=== PATIENT | female | born 1950 | race Caucasian/White ===

== ENCOUNTER → 2016-12-09 | Outpatient (CLI) | payer MEDICARE, OTHER | LOC: OD 09:39 | PROVIDERS: ATTEND Internal Medicine Endocrinology, Diabetes & Metabolism | DX: E11.9 Type 2 diabetes mellitus without complications (principal) | CPT/HCPCS: 36415; 82533 ==

== ENCOUNTER 2017-03-18 19:09 | Observation (INO) | payer MEDICARE, OTHER ==
--- NOTE | 2017-03-18 19:42 | ER Document Report ---
ED Cardiac - General Stated Complaint: CHEST PAIN Time seen by provider: 19:35 Notes: Patient is a 66-year-old female that comes emergency department for chief complaint of chest pain that started around 1830, she states that symptoms started prior to arrival, she states she had a shooting sharp pain that went from the left side of her chest in the front to her back and also down her left arm. EMS reports she was diaphoretic when they arrived. Patient took 325 mg of aspirin, comes by EMS, was given 1 sublingual nitroglycerin and 100 g of fentanyl, patient states she feels much improved now and only barely intermittently feels mild discomfort. She denies feeling palpitations. Patient is on chronic opioid pain management for her lower back. Patient denies shortness breath, nausea vomiting, fever, cough. Patient denies history of [place], states she had a negative stress test 3 years ago and a negative cardiac catheterization in the past. Past medical history of lymphoma, thyroid cancer, previous chemotherapy and radiation, COPD (former smoker), hypertension, hyperlipidemia, paroxysmal atrial fibrillation. Patient takes aspirin daily. Patient's machine puller is Dr. Cruz ([place]). TRAVEL OUTSIDE OF THE [place] IN LAST 30 DAYS: No - Related Data Allergies/Adverse Reactions: butorphanol tartrate [From Stadol] Adverse Reaction (Severe, Verified 09/30/13 18:53) n and v adhesives Allergy (Severe, Uncoded 09/30/13 18:53) Blisters seasonal Allergy (Severe, Uncoded 09/30/13 18:53) itching Home Medications: Current Home Medications Albuterol Sulfate [Proair HFA] 2 puff IH QIDP PRN 03/18/17 [History] Gabapentin Enacarbil [Horizant] 600 g PO DAILY 03/18/17 [History] Linaclotide [Linzess] 290 mcg PO DAILY 03/18/17 [History] Primidone [Mysoline] 100 mg PO QHS 03/18/17 [History] Primidone [Mysoline] 100 mg PO QPM 03/18/17 [History] Rizatriptan Benzoate [Rizatriptan] 10 mg PO DAILY 03/18/17 [History] Sitagliptin Phosphate [Januvia 50 mg Tablet] 50 mg PO DAILY 03/18/17 [History] Etanercept [Enbrel] 50 mg SQ ASDIR PRN 03/19/17 [History] Oxycodone HCl/Acetaminophen [Percocet 5-325 mg Tablet] 1 tab PO Q6HP PRN [History] Past Medical History - General Information source: Patient - Social History Smoking Status: Former Smoker Frequency of alcohol use: None Drug Abuse: None Lives with: Family Family History: Reviewed & Not Pertinent - Past Medical History Cardiac Medical History: Reports: Hx Atrial Fibrillation - paroxysmal, Hx Heart Attack - ?, Hx Hypertension Denies: Hx Coronary Artery Disease Pulmonary Medical History: Reports: Hx Asthma, Hx Bronchitis - hx of, Hx COPD - uses inhalers, Hx Pneumonia - hx of Neurological Medical History: Denies: Hx Cerebrovascular Accident, Hx Seizures Musculoskeltal Medical History: Reports Hx Arthritis Skin Medical History: Reports Hx Psoriasis Past Surgical History: Reports: Hx Genitourinary Surgery - Bladder sling, Hx Gynecologic Surgery - cystoseal, Hx Hysterectomy, Hx Thyroid Surgery - rectoseal. Denies: Hx Pacemaker - Immunizations Hx Diphtheria, Pertussis, Tetanus Vaccination: Yes Review of Systems - Review of Systems Constitutional: No symptoms reported EENT: No symptoms reported Cardiovascular: See HPI Respiratory: No symptoms reported Gastrointestinal: No symptoms reported Genitourinary: No symptoms reported Female Genitourinary: No symptoms reported Musculoskeletal: No symptoms reported Skin: No symptoms reported Hematologic/Lymphatic: No symptoms reported Neurological/Psychological: No symptoms reported Physical Exam - Vital signs Interpretation: Normal - General General appearance: Appears well In distress: None - Patient smiling, talkative, relaxed appearing - HEENT Head: Normocephalic, Atraumatic Eyes: Normal Conjunctiva: Normal Extraocular movements intact: Yes Eyelashes: Normal Pupils: PERRL Mouth/Lips: Normal Mucous membranes: Normal Pharynx: Normal Neck: Normal - Respiratory Respiratory status: No respiratory distress Chest status: Nontender Breath sounds: Normal. No: Decreased air movement, Wheezing Chest palpation: Normal - Cardiovascular Rhythm: Regular. No: Tachycardia Heart sounds: Normal auscultation, S1 appreciated, S2 appreciated Murmur: No - Abdominal Inspection: Normal Distension: No distension Bowel sounds: Normal Tenderness: Nontender Organomegaly: No organomegaly - Back Back: Normal, Nontender. 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 03/18/17 On reexamination patient is pain-free unless she actively moves her left shoulder, there is pain with palpation of the left upper anterior chest wall near the clavicle and also the back near the midline of the scapula, patient with no other complaints. Patient states her other symptoms have resolved ( shooting pain which made her diaphoretic). CBC unremarkable, potassium is very slightly elevated at 5.2, chronic kidney disease comparable to prior, initial cardiac enzymes negative. Old CT in 2015 showing thoracic aortic aneurysm. Patient current symptoms not indicating worsening aneurysm/dissection/rupture, patient has normal bilateral pulses, unremarkable vital signs, is comfortable appearing. Discussed with Dr. Ellis, does not recommend CT chest at this time, does recommend telemetry observation. Discussed with patient, she is very agreeable with this. 03/19/17 Second set of cardiac enzymes is negative. Patient unchanged with no current complaints. Spoke with Dr. Gonzales, patient will be admitted to telemetry observation. - Laboratory Result Diagrams: 03/18/17 20:02 03/18/17 20:02 Laboratory results interpreted by me: 03/18/17 20:02 Potassium 5.2 H BUN 26 H Creatinine 1.30 H Est GFR ( Amer) 50 L Est GFR (Non-Af Amer) 41 L Discharge - Discharge Clinical Impression: Chest pain Qualifiers: Chest pain type: unspecified Qualified Code(s): R07.9 - Chest pain, unspecified Admitting Provider: Hospitalist Unit Admitted: Telemetry
[2017-03-18 20:15] LABS: ABSOLUTE BASOPHILS # (AUTO) 0.1 10^3/uL (0.0-0.2); ABSOLUTE EOSINOPHILS # (AUTO) 0.5 10^3/uL (0.0-0.6); ABSOLUTE LYMPHOCYTES (AUTO) 3.1 10^3/uL (0.5-4.7); ABSOLUTE MONOCYTES (AUTO) 0.7 10^3/uL (0.1-1.4); ABSOLUTE NEUT (AUTO) 4.9 10^3/uL (1.7-8.2); BASOPHILS % (AUTO) 0.7 % (0-2); EOSINOPHILS % (AUTO) 5.5 % (0-6); HEMATOCRIT 39.4 % (36.0-47.0); HEMOGLOBIN 13.2 g/dL (12.0-15.5); HGB HCT DIFFERENCE 0.2; LYMPHOCYTES % (AUTO) 33.4 % (13-45); MEAN CORPUSCULAR HEMOGLOBIN 29.3 pg (27.0-33.4); MEAN CORPUSCULAR HGB CONC 33.6 g/dL (32.0-36.0); MEAN CORPUSCULAR VOLUME 87 fl (80-97); MONOCYTES % (AUTO) 7.4 % (3-13); RED BLOOD COUNT 4.51 10^6/uL (3.72-5.28); RED CELL DISTRIBUTION WIDTH 12.4 % (11.5-14.0); WHITE BLOOD COUNT 9.2 10^3/uL (4.0-10.5)
[2017-03-18 20:31] LABS: ALANINE AMINOTRANSFERASE 34 U/L (9-52); ALBUMIN 4.3 g/dL (3.5-5.0); ALKALINE PHOSPHATASE 97 U/L (38-126); ANION GAP 14 (5-19); ASPARTATE AMINO TRANSFERASE 28 U/L (14-36); BILIRUBIN,DIRECT 0.3 mg/dL (0.0-0.4); BILIRUBIN,TOTAL 0.5 mg/dL (0.2-1.3); BLOOD UREA NITROGEN 26 mg/dL (7-20); CALCIUM 9.1 mg/dL (8.4-10.2); CARBON DIOXIDE 26 mmol/L (22-30); CHLORIDE 100 mmol/L (98-107); CREATINE KINASE 74 U/L (30-135); GLUCOSE 94 mg/dL (75-110); POTASSIUM 5.2 mmol/L (3.6-5.0); SODIUM 139.9 mmol/L (137-145); TOTAL PROTEIN 7.8 g/dL (6.3-8.2)
[2017-03-18 20:43] LABS: CREATINE KINASE MB 0.46 ng/mL (<4.55)
[2017-03-18 20:44] LABS: TROPONIN I < 0.012 ng/mL
[2017-03-19 01:28] LABS: ADD ON TESTING BLD IN LAB ACKNOWLEDGE
[2017-03-19] MEDS ORDERED: GLUCAGON,HUMAN RECOMB 1 MG INJ IM PRN (01:34)
[2017-03-19] MEDS ORDERED: ACETAMINOPHEN 325 MG TABLET PO PRN (01:34)
[2017-03-19] MEDS ORDERED: INSULIN LISPRO 100 UNIT/ML 3 ML VIAL SUBCUT PRN (01:34)
[2017-03-19] MEDS ORDERED: DEXTROSE 40% GEL 15 GM TUBE PO PRN ×2 (01:34)
[2017-03-19] MEDS ORDERED: DEXTROSE 50%-WATER 25 GM/50 ML DISP.SYRIN IV PRN ×2 (01:34)
[2017-03-19 01:38] LABS: POTASSIUM 5.2 mmol/L (3.6-5.0)
[2017-03-19] MEDS ORDERED: OXYCODONE HCL IR 5 MG TABLET PO PRN (01:42)
--- NOTE | 2017-03-19 02:12 | PDOC H&P ---
History of Present Illness Admission Date/PCP: 03/19/17 00:08 MD Marivel HERNÁNDEZ MD [facility] Patient complains of: chest pain History of Present Illness: MAREK GILES is a 66 year old Caucasion female with a somewhat complicated past medical history, including known coronary artery disease, who presents to the emergency room for evaluation of above complaint. Patient has been discussed with emergency room nurse practitioner who evaluated the patient. She noted the onset approximately 6:30 PM on the of sharp shooting left anterior chest pain that radiated to her back and also down her left arm. Associated diaphoresis. No other associated symptoms. No prior such episodes. Lasted approximately 2 hours. Resolved eventually after a full strength aspirin, one sublingual nitroglycerin, and 100 g of IV fentanyl. 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 Was noted by the emergency room nurse practitioner to have mild palpable pain around her left shoulder, but Currently resting quietly, completely pain-free. Suffered a myocardial infarction greater than 25 years ago. Catheterization performed at that time, with no intervention, including stent or angioplasty. Negative nuclear stress study 3 years ago. Hypertension. History of paroxysmal atrial fibrillation. No history of pulmonary embolus or DVT. No recent long trip with prolonged inactivity, or unusual lower extremity swelling or tenderness. Has a known thoracic descending aortic aneurysm, first documented on CT angiogram of chest in 2014, with stable dimensions by noncontrast chest CT approximately a year ago. Patient states she first found out about the aneurysm this evening. Has a history of gastric lymphoma, status post treatment of same, diagnosed in 2009. She is status post wedge resection of her right lung which did not reveal any evidence of pulmonary involvement with lymphoma, according to patient. She is also status post total thyroidectomy for carcinoma. Laboratory results are listed in [facility] [employer] and are reviewed. X-ray summary results are listed below, with full report(s) reviewed. . EKG's reviewed. And compared to a tracing from September 152014. Social history/personal habits: . Has children. 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 Former smoker. Rare alcohol use. No illicit drug use. Allergies/adverse reactions are listed in [employer] and are reviewed. Home medications Home medications initially autopopulated into [employer] may not accurately reflect patient's true medications, dosages, and/or frequencies. 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 REVIEW OF SYSTEMS: Constitutional: No fever or chills. Eyes: No current vision complaints. ENT: No swallowing problems or complaints. No hearing problems or complaints. Pulmonary: No current complaints. Cardiovascular: See history and present illness. Gastrointestinal: No current complaints, including nausea or vomiting. Skin: Psoriasis Hematologic: Easy bruising. Neurologic: Chronic numbness and tingling of her feet from her diabetes mellitus. Musculoskeletal: Joint pain from arthritis. Psychiatric: No current complaints, including anxiety or depression. Endocrine: No current complaints, including polyuria. Genitourinary: No current complaints, including dysuria. PHYSICAL EXAMINATION: Emergency room nurse Davis is present. 5 feet 10 inches tall. 99.8 kg. BMI 31.6 kg/m. Blood pressure 110/69. Pulse 85 and regular. 93% saturation on room air. Respirations are 20 and unlabored. Temperature not recorded on chart; skin feels normothermic. Somewhat obese otherwise well-developed female who appears a bit younger than her stated age. Pleasant awake alert and cooperative. No obvious distress other than somewhat anxious. No agitation. Skin is warm and dry. No grossly obvious evidence of rash in areas of skin examined. No subcutaneous nodules palpated. ENT: Hearing grossly normal to normal conversation. Tongue midline on protrusion pink and slightly moist. Eyes: No scleral icterus. Pupils equal and reactive to light at 4 mm. [place] conjunctivae. Neck is supple and nontender to gentle active range of motion and palpation. Midline trachea. No palpable thyroid nodule mass enlargement or tenderness. Lymphatic: No palpable cervical or clavicular nodes. Neck and lymphatic exams limited by patient body habitus. Psychiatric: Reasonable insight into acute and chronic medical issues. Oriented to time location and why here. Lungs: Auscultation reveals clear and equal breath sounds bilaterally. No use of accessory respiratory muscles. Cardiovascular: Heart regular rate and rhythm, without gallop murmur or rub. No carotid or abdominal aortic bruits. No ankle or pedal edema. Faintly palpable dorsalis pedis pulses. Abdomen: soft, somewhat obese, nontender with positive bowel sounds. Unable to adequately evaluate abdomen for masses or organomegaly due to body habitus. Compression of neither her upper abdomen nor sternum nor upper left anterior chest wall reproduces her previously noted chest discomfort. Compression of the upper left anterior chest wall does produce mild sharp discomfort, but again , different than the discomfort that brought her to the emergency room. Extremities: Feet are warm and dry. No calf tenderness to compression. No grossly obvious visual evidence of calf swelling. Gentle manipulation of lower extremities fails to reveal any obvious evidence of injury or instability to knees hips or ankles. Neurologic: Moves upper extremities grossly normally. Patellar reflexes absent. Absent Babinski. Light touch decreased at her feet, a chronic finding according to patient. Dorsiflexion and plantarflexion of feet 5 / 5 and symmetric. Past Medical History Cardiac Medical History: Reports: Atrial Fibrillation - paroxysmal, Coronary Artery Disease, Myocardial Infarction - Greater than 25 years ago., Hyperlipidema - Diagnosis 2 weeks ago; to discuss medical treatment with PCP., Hypertension Denies: DVT, Pulmonary Embolism Pulmonary Medical History: Reports: Asthma, Bronchitis - hx of, Pneumonia - hx of Denies: Chronic Obstructive Pulmonary Disease (COPD) Neurological Medical History: Denies: Hemorrhagic CVA, Ischemic CVA, Seizures Endocrine Medical History: Reports: Diabetes Mellitus Type 2, Hypothyroidism - Postsurgical for carcinoma Denies: Diabetes Mellitus Type 1, Hyperthyroidism Renal/ Medical History: Reports: None Malignancy Medical History: Reports: Lymphoma - Gastric, Skin Cancer - Squamous and basal cell carcinomas., Other - Thyroid, status post total thyroidectomy. GI Medical History: Reports: Other - Fatty liver, but with recent intentional 40 pound weight loss. Denies: Cirrhosis, Gastroesophageal Reflux Disease, Hepatitis Musculoskeltal Medical History: Reports: Arthritis - Psoriatic and degenerative Skin Medical History: Reports: Psoriasis Psychiatric Medical History: Denies: Alcohol Dependency, Depression, General Anxiety Disorder, Substance Abuse, Tobacco Dependency Hematology: Reports: Other - Easy bruising Denies: Anemia Infectious Medical History: Denies: Hepatitis B, Hepatitis C Past Surgical History Past Surgical History: Reports: Hysterectomy, Thyroidectomy - Total for carcinoma, Other - Bladder sling; wedge resection, right lung, with no evidence of lymphoma Denies: Pacemaker Social History Information Source: Patient, Emergency Med Personnel, [facility] Records Lives with: Spouse/Significant other Smoking Status: Former Smoker Frequency of Alcohol Use: Rare Drugs: None - Advance Directive Resuscitation Status: Full Code Surrogate healthcare decision maker:: Family History Family History: Reviewed & Not Pertinent, Malignancy, Other - Mother of ruptured abdominal aortic aneurysm; also had leukemia Parental Family History Reviewed: Yes Children Family History Reviewed: Yes Sibling(s) Family History Reviewed.: Yes Medication/Allergy Home Medications: Amlodipine Bes/Olmesartan Med [Ade 5-20 Mg Tablet] 1 each PO Q48HS 09/16/12 Calcitriol [Rocaltrol 0.25 mcg Capsule] 0.5 mcg PO DAILY 09/16/12 Fluticasone/Salmeterol [Advair 500-50 Diskus 14 Dose (Hosp Use)] 1 inh IH BID Levothyroxine Sodium [Synthroid] 150 mcg PO DAILY 09/16/12 Morphine Sulfate [Avinza] 60 mg PO DAILY 09/16/12 Celecoxib [Celebrex 200 Mg Capsule] 200 mg PO BIDP PRN 09/19/12 Duloxetine HCl [Cymbalta] 90 mg PO DAILY 09/19/12 Oxycodone HCl/Acetaminophen [Percocet 10-325 Mg Tablet] 1 each PO Q6HP PRN 09/19 Primidone [Mysoline 50 Mg Tablet] 50 mg PO QAM 09/30/13 Albuterol Sulfate [Proair HFA] 2 puff IH QIDP PRN 03/18/17 Gabapentin Enacarbil [Horizant] 600 g PO DAILY 03/18/17 Linaclotide [Linzess] 290 mcg PO DAILY 03/18/17 Primidone [Mysoline] 100 mg PO QHS 03/18/17 Primidone [Mysoline] 100 mg PO QPM 03/18/17 Rizatriptan Benzoate [Rizatriptan] 10 mg PO DAILY 03/18/17 Sitagliptin Phosphate [Januvia 50 mg Tablet] 50 mg PO DAILY 03/18/17 Etanercept [Enbrel] 50 mg SQ ASDIR PRN 03/19/17 Oxycodone HCl/Acetaminophen [Percocet 5-325 mg Tablet] 1 tab PO Q6HP PRN Allergies/Adverse Reactions: butorphanol tartrate [From Stadol] Adverse Reaction (Severe, Verified 03/19/17 01:42) n and v adhesives Allergy (Severe, Uncoded 09/30/13 18:53) Blisters seasonal Allergy (Severe, Uncoded 09/30/13 18:53) itching Physical Exam Vital Signs: Temp Pulse Resp BP Pulse Ox 13 110/69 93 03/19/17 00:31 03/19/17 00:31 03/19/17 00:31 Results Impressions: Chest X-Ray 03/18/17 19:21 IMPRESSION: NO ACUTE RADIOGRAPHIC FINDING IN THE CHEST. Assessment & Plan - Diagnosis (1) Chest pain Qualifiers: Chest pain type: unspecified Qualified Code(s): R07.9 - Chest pain, unspecified Is this a current diagnosis for this admission?: YesPlan: Patient will be placed in observation bed under chest pain protocol. Patient understands to notify staff should chest pain recur. Serial troponin's . Repeat EKG. with hyperlipidemia noted on primary care provider's lipid panel 2 weeks ago, will forego repeat panel during this hospital admission; will request lab results from PCP. I have strongly encouraged patient not to get out of bed without notifying staff , to avoid a fall with injury. Knee high SCDs for DVT prophylaxis. Along with subcutaneous heparin. Impression and plans were discussed with patient, who concurs. Time spent in evaluation and management of patient: 68 minutes. (2) Hyperkalemia Is this a current diagnosis for this admission?: YesPlan: Follow-up chemistry. (3) Hyperlipidemia Qualifiers: Hyperlipidemia type: unspecified Qualified Code(s): E78.5 - Hyperlipidemia, unspecified Is this a current diagnosis for this admission?: Yes (4) CAD (coronary artery disease) Qualifiers: Coronary Disease-Associated Artery/Lesion type: [place] artery [place] vs. transplanted heart: [place] heart Associated angina: angina presence unspecified Qualified Code(s): I25.10 - Atherosclerotic heart disease of [place] coronary artery without angina pectoris Is this a current diagnosis for this admission?: YesPlan: Resume home medications as appropriate once these have been determined and reviewed. (5) CKD (chronic kidney disease), stage III Is this a current diagnosis for this admission?: Yes (6) Diabetes mellitus type 2 in obese Is this a current diagnosis for this admission?: YesPlan: Diabetic cardiac prerenal diet.Resume home medications as appropriate once these have been determined and reviewed. (7) Post-surgical hypothyroidism Is this a current diagnosis for this admission?: YesPlan: TSH level pending. Resume home medications as appropriate once these have been determined and reviewed. (8) Thoracic ascending aortic aneurysm Is this a current diagnosis for this admission?: Yes
[2017-03-19] MEDS ORDERED: LANSOPRAZOLE 30 MG TAB.RAP.DR PO SCH (06:00)
[2017-03-19 06:47] LABS: ANION GAP 10 (5-19); BLOOD UREA NITROGEN 24 mg/dL (7-20); CALCIUM 8.7 mg/dL (8.4-10.2); CARBON DIOXIDE 31 mmol/L (22-30); CHLORIDE 101 mmol/L (98-107); CREATININE RESULT 1.32 mg/dL (0.52-1.25); GLUCOSE 97 mg/dL (75-110); SODIUM 141.8 mmol/L (137-145)
[2017-03-19 06:49] LABS: POTASSIUM 4.9 mmol/L (3.6-5.0)
--- NOTE | 2017-03-19 08:31 | EKG REPORT ---
SEVERITY:- BORDERLINE ECG - SINUS RHYTHM BORDERLINE LEFT AXIS DEVIATION BORDERLINE R WAVE PROGRESSION, ANTERIOR LEADS : Confirmed by: Roxy Maya MD 19-Mar-2017 08:31:18
--- NOTE | 2017-03-19 08:33 | EKG REPORT ---
SEVERITY:- BORDERLINE ECG - SINUS RHYTHM BORDERLINE LEFT AXIS DEVIATION BORDERLINE R WAVE PROGRESSION, ANTERIOR LEADS : Confirmed by: Roxy Maya MD 19-Mar-2017 08:31:24
[2017-03-19] MEDS ORDERED: ASPIRIN 81 MG TABLET, ENT COATED PO SCH (10:00)
[2017-03-19] MEDS ORDERED: HEPARIN SOD (PORCINE) 5,000 UNIT/ML 1 ML SYRINGE SUBCUT SCH (10:00)
[2017-03-19] MEDS ORDERED: ENOXAPARIN SODIUM INJ 40 MG/0.4 ML DISP.SYRIN SUBCUT SCH (10:00)
--- NOTE | 2017-03-19 11:04 | PDOC DISCHARGE SUMMARY ---
General - Admit/Disc Date/PCP Admission Date/Primary Care Provider: 03/19/17 01:37 XIMENA ROBERTS MD Discharge Date: 03/19/17 - Discharge Diagnosis (1) Chest pain Is this a current diagnosis for this admission?: Yes (2) Hyperkalemia Is this a current diagnosis for this admission?: Yes (3) Hyperlipidemia Is this a current diagnosis for this admission?: Yes (4) CAD (coronary artery disease) Is this a current diagnosis for this admission?: Yes (5) CKD (chronic kidney disease), stage III Is this a current diagnosis for this admission?: Yes (6) Diabetes mellitus type 2 in obese Is this a current diagnosis for this admission?: Yes (7) Post-surgical hypothyroidism Is this a current diagnosis for this admission?: Yes (8) Thoracic ascending aortic aneurysm Is this a current diagnosis for this admission?: Yes - Additional Information Resuscitation Status: Full Code Discharge Diet: Cardiac - low fat, low salt, Diabetic - no concentrated sweets Discharge Activity: Activity As Tolerated, Balance Activity w/Rest Home Medications: Albuterol Sulfate [Proair HFA] 2 puff IH QIDP PRN 03/19/17 Amlodipine Besylate [Norvasc 5 mg Tablet] 5 mg PO DAILY #30 tablet 03/19/17 Aspirin [Ecotrin 81 mg EC Tablet] 81 mg PO DAILY tabec 03/19/17 Calcitriol [Rocaltrol 0.5 mcg Capsule] 1 cap PO DAILY 03/19/17 Celecoxib [Celebrex 200 mg Capsule] 200 mg PO BIDP PRN 03/19/17 Duloxetine HCl 30 mg PO DAILY 03/19/17 Duloxetine HCl [Cymbalta] 60 mg PO DAILY 03/19/17 Fluticasone/Salmeterol [Advair 500-50 Diskus 28 Dose] 1 inh IH Q12 03/19/17 Gabapentin Enacarbil [Horizant] 600 mg PO WSUPPER 03/19/17 L.acidoph & Paracasei,B.lactis [Probiotic] 1 each PO DAILY 03/19/17 L.acidoph & Paracasei,B.lactis [Probiotic] 1 each PO DAILY 03/19/17 Levothyroxine Sodium [Synthroid 0.15 mg Tablet] 0.15 mg PO DAILY 03/19/17 Linaclotide [Linzess] 290 mcg PO DAILY 03/19/17 Melatonin 1.5 mg PO DAILY 03/19/17 Morphine Sulfate [Morphine Sulfate ER] 60 mg PO DAILY 03/19/17 Multivitamin Gummies 1 ea PO DAILY 03/19/17 Oxycodone HCl/Acetaminophen [Percocet 5-325 mg Tablet] 1 tab PO Q6HP PRN Primidone [Mysoline 50 mg Tablet] 50 mg PO DAILY 03/19/17 Primidone [Mysoline 50 mg Tablet] 100 mg PO BID@1800,2200 03/19/17 Rizatriptan Benzoate [Rizatriptan] 10 mg PO DAILYP PRN 03/19/17 Sitagliptin Phosphate [Januvia 50 mg Tablet] 50 mg PO DAILY 03/19/17 Additional Information: Stress test w/ Care Tech in [place] in 1 to 2 weeks. History of Present Illness Patient complains of: Chest Pain History of Present Illness: MAREK GILES is a 66 year old female, with diabetes, coronary artery disease, hypertension presents to the emergency room because of chest pain. Patient likewise have history of thoracic aortic aneurysm that was stable on CT scan. In the emergency room the patient was given aspirin and fentanyl and the pain resolved. Patient is being followed by cider maker in [place]. Patient reports stress test done performed about 3 years ago that was negative. Patient was then referred for observation. For details is referred to history and physical examination, performed by the admitting physician. Hospital Course Hospital Course: The patient was admitted to observation. The patient was placed on antiplatelet therapy, likewise on nitroglycerin as needed. Patient's chest pain resolved and has not recurred. EKG serially was done with no evolutionary changes. Troponins were negative for myocardial infarction. D-dimer was normal. She was placed on supplemental oxygen as well with the prophylaxis with Lovenox. Course Noted for hyperkalemia w/c resolved. She apparently is on ARB and therefore she was advised to discontinue the medication and monitor blood pressure at home. Her TSH was low but her free T4 was normal. At this point she wanted to go home and just wanted to have a follow-up with her physician and cider maker. She agreed for a cardiac stress test on an outpatient basis which is what she prefers. Patient reports that she will do it with her cider maker. Family is at bedside with her who agrees with her plan. The rest of the hospital stays unremarkable. Physical Exam Vital Signs: Temp Pulse Resp BP Pulse Ox 97.7 F 13 112/73 95 03/19/17 07:14 03/19/17 08:01 03/19/17 08:01 03/19/17 08:01 General appearance: PRESENT: no acute distress, cooperative, obese Head exam: PRESENT: normocephalic Eye exam: PRESENT: EOMI Mouth exam: PRESENT: moist, neck supple Neck exam: ABSENT: JVD Respiratory exam: PRESENT: clear to auscultation aisha. ABSENT: rhonchi, wheezes Cardiovascular exam: PRESENT: RRR. ABSENT: gallop GI/Abdominal exam: PRESENT: normal bowel sounds, soft. ABSENT: distended, tenderness Extremities exam: ABSENT: pedal edema Neurological exam: PRESENT: alert, awake, oriented to person, oriented to place , oriented to time, oriented to situation Skin exam: PRESENT: dry, warm. ABSENT: cyanosis Results Laboratory Results: 03/19/17 06:12 03/19/17 03/19/17 06:12 06:12 Sodium 141.8 Potassium 4.9 Chloride 101 Carbon Dioxide 31 H Anion Gap 10 BUN 24 H Creatinine 1.32 H Est GFR ( Amer) 49 L Est GFR (Non-Af Amer) 40 L Glucose 97 Calcium 8.7 Free T4 1.14 03/19/17 06:12 Troponin I < 0.012 Impressions: Chest X-Ray 03/18/17 19:21 IMPRESSION: NO ACUTE RADIOGRAPHIC FINDING IN THE CHEST. Qualifiers PATEINT BEING DISCHARGED WITH ANY OF THE FOLLOWING DIAGNOSIS?: No Plan Discharge Plan: Follow-up w/ primary physician in 1 week, with primary cider maker in [place] , Dr. Head in 1 to 2 weeks. Time Spent: Less than 30 Minutes
[2017-03-19 11:26] VITALS: BP 98/62
== END 2017-03-19 11:45 | disposition home or self-care (01) ==
LOC: ER 19:09 → UNDOADMOB 03-19 00:08 → EH 03-19 00:08
PROVIDERS: ADMIT Family Medicine; ATTEND Family Medicine
DX: R07.89 Other chest pain (principal); E87.5 Hyperkalemia; E78.5 Hyperlipidemia, unspecified; I25.10 Atherosclerotic heart disease of native coronary artery without angina pectoris; E11.22 Type 2 diabetes mellitus with diabetic chronic kidney disease; I12.9 Hypertensive chronic kidney disease with stage 1 through stage 4 chronic kidney disease, or unspecified chronic kidney disease; N18.3 Chronic kidney disease, stage 3 (moderate); E66.9 Obesity, unspecified; E89.0 Postprocedural hypothyroidism; I71.2 Thoracic aortic aneurysm, without rupture; J45.909 Unspecified asthma, uncomplicated; L40.50 Arthropathic psoriasis, unspecified; M19.90 Unspecified osteoarthritis, unspecified site; E11.69 Type 2 diabetes mellitus with other specified complication; I25.2 Old myocardial infarction; R20.0 Anesthesia of skin; R20.2 Paresthesia of skin; M25.512 Pain in left shoulder; J44.9 Chronic obstructive pulmonary disease, unspecified; Z79.82 Long term (current) use of aspirin; Z79.51 Long term (current) use of inhaled steroids; Z79.84 Long term (current) use of oral hypoglycemic drugs; Z79.899 Other long term (current) drug therapy; Z85.72 Personal history of non-Hodgkin lymphomas; Z90.2 Acquired absence of lung [part of]; Z92.3 Personal history of irradiation; Z92.21 Personal history of antineoplastic chemotherapy; Z87.891 Personal history of nicotine dependence; Z85.850 Personal history of malignant neoplasm of thyroid; Z68.31 Body mass index [BMI] 31.0-31.9, adult; Z87.01 Personal history of pneumonia (recurrent); Z80.6 Family history of leukemia; Z82.49 Family history of ischemic heart disease and other diseases of the circulatory system; Z79.891 Long term (current) use of opiate analgesic; Z85.828 Personal history of other malignant neoplasm of skin
CPT/HCPCS: 93005 ×2; 99285; 96372; 36415 ×2; 84439; 82553; 82962; 82550; 84132; 84443; 85025; 80048; 80053; 84484 ×2; 85379; 71010; 93010 ×2; G0378; J1644; A9270 ×3; J3490

== ENCOUNTER 2017-10-08 22:23 | Emergency (ER) | payer MEDICARE, OTHER ==
[2017-10-08] MEDS ORDERED: ONDANSETRON HCL INJ/PF 4 MG/2 ML SDV IV ONE (22:47)
[2017-10-08] MEDS ORDERED: NORMAL SALINE 1000 ML 1,000 ML IV PRN (22:53)
[2017-10-08] MEDS ORDERED: PROCHLORPERAZINE EDISYLATE INJ 10 MG/2 ML VIAL IV ONE (22:53)
[2017-10-08] MEDS ORDERED: DIPHENHYDRAMINE HCL 50 MG/ML VIAL IV ONE (22:53)
--- NOTE | 2017-10-08 22:53 | ER Document Report ---
ED Headache - General Mode of Arrival: Ambulatory Information source: Patient TRAVEL OUTSIDE OF THE U[place]. IN LAST 30 DAYS: No <HARLEY VEE - Last Filed: 10/09/17 03:05> <SHLOMO RIVERA - Last Filed: 10/09/17 05:45> - General Chief Complaint: High Blood Pressure Stated Complaint: BLOOD PRESSURE ISSUE Time Seen by Provider: 10/08/17 22:46 Notes: Patient is a 67-year-old female who presents to the emergency department today with complaints of "a really bad headache" for the last 2-3 days. Patient states she has a history of migraine headaches but she has not had one in years. Patient states when the headache began her pain was much worse than a normal migraine but it now feels similar to a migraine. Patient also notes she has had elevated blood pressures at home, she called her supervisor sintering plant who increased her blood pressure medicine. Patient states she did take Excedrin Migraine with minimal relief. Patient states she has had associated nausea and a decreased appetite. Patient denies any vomiting or usage of blood thinners. ( HARLEY VEE) - Related Data Allergies/Adverse Reactions: butorphanol tartrate [From Stadol] Adverse Reaction (Severe, Verified 03/19/17 07:53) n and v adhesives Allergy (Severe, Uncoded 03/19/17 07:53) Blisters seasonal Allergy (Severe, Uncoded 03/19/17 07:53) itching Past Medical History - General Information source: Patient - Social History Smoking Status: Never Smoker Cigarette use (# per day): No Frequency of alcohol use: None Drug Abuse: None Lives with: Family Family History: Reviewed & Not Pertinent, Malignancy, Other - Mother of ruptured abdominal aortic aneurysm; also had leukemia Patient has suicidal ideation: No Patient has homicidal ideation: No - Past Medical History Cardiac Medical History: Reports: Hx Atrial Fibrillation - paroxysmal, Hx Coronary Artery Disease, Hx Heart Attack - Greater than 25 years ago., Hx Hypercholesterolemia - Diagnosis 2 weeks ago; to discuss medical treatment with PCP., Hx Hypertension Pulmonary Medical History: Reports: Hx Asthma, Hx Bronchitis - hx of, Hx Pneumonia - hx of Endocrine Medical History: Reports: Hx Diabetes Mellitus Type 2, Hx Hypothyroidism - Postsurgical for carcinoma Malignancy Medical History: Reports: Hx Lymphoma - Gastric, Hx Skin Cancer - Squamous and basal cell carcinomas. Musculoskeltal Medical History: Reports Hx Arthritis - Psoriatic and degenerative Skin Medical History: Reports Hx Psoriasis Past Surgical History: Reports: Hx Genitourinary Surgery - Bladder sling, Hx Gynecologic Surgery - cystoseal, Hx Hysterectomy, Hx Thyroid Surgery - rectoseal , Other - Bladder sling; wedge resection, right lung, with no evidence of lymphoma - Immunizations Hx Diphtheria, Pertussis, Tetanus Vaccination: Yes <HARLEY VEE - Last Filed: 10/09/17 03:05> Review of Systems - Review of Systems Constitutional: See HPI, Other - decreased appetite EENT: No symptoms reported Cardiovascular: See HPI, Other - elevated blood pressure Respiratory: No symptoms reported Gastrointestinal: See HPI, Nausea. denies: Vomiting Genitourinary: No symptoms reported Female Genitourinary: No symptoms reported Musculoskeletal: No symptoms reported Skin: No symptoms reported Hematologic/Lymphatic: No symptoms reported Neurological/Psychological: See HPI, Headaches -: Yes All other systems reviewed and negative <HARLEY VEE - Last Filed: 10/09/17 03:05> Physical Exam - Vital signs Interpretation: Hypertensive <HARLEY VEE - Last Filed: 10/09/17 03:05> <SHLOMO RIVERA - Last Filed: 10/09/17 05:45> - Vital signs Vitals: Temp Pulse Resp BP Pulse Ox 97.9 F 113 H 22 H 177/102 H 96 10/08/17 22:23 10/08/17 22:23 10/08/17 22:23 10/08/17 22:23 10/08/17 22:23 - Notes Notes: Physical Exam: General: Alert, appears well. HEENT: Normocephalic. Atraumatic. PERRL. Extraocular movements intact. Oropharynx clear. Right eye twitching. Normal fundascopic exam. Dry mucous membranes. Neck: Supple. Non-tender. Respiratory: No respiratory distress. Clear and equal breath sounds bilaterally. Cardiovascular: Regular rate and rhythm. Abdominal: Normal Inspection. Non-tender. No distension. Normal Bowel Sounds. Back: Non-tender. No deformity or step off. Extremities: Moves all four extremities. Upper extremities: Normal inspection. Normal ROM. Lower extremities: Normal inspection. No edema. Normal ROM. Neurological: Normal cognition. AAOx4. Normal speech. Psychological: Normal affect. Normal Mood. Skin: Warm. Dry. Normal color. (HARLEY VEE) Course - Laboratory Result Diagrams: 10/08/17 23:07 10/08/17 23:07 <HARLEY VEE - Last Filed: 10/09/17 03:05> - Laboratory Result Diagrams: 10/08/17 23:07 10/08/17 23:07 - Consults [facility] Time consulted: 23:45 - initiation of transfer Neurosurgery Time consulted: 00:00 - will accept for transfer <SHLOMO RIVERA - Last Filed: 10/09/17 05:45> - Re-evaluation Re-evalutation: 10/08/17 23:45 Call placed to [facility] for transfer to neurosurgery (HARLEY VEE) 10/09/17 00:47 Patient is a 67-year-old female who comes in complaining of a headache and is hypertensive. Patient's blood pressure has come down with medication for her headache. Patient does have a small area in her right frontoparietal lobe where the patient's headache is that is concerning for hemorrhage. Patient is neurovascularly intact. Patient is feeling somewhat better. Patient was discussed with neurosurgery who recommends giving the patient dexamethasone IV. She will be accepted to the SICU. Patient understands and agrees with this plan. Stable for transfer to [facility]. (SHLOMO RIVERA) - Vital Signs Vital signs: Temp Pulse Resp BP Pulse Ox 97.9 F 113 H 14 158/93 H 98 10/08/17 22:23 10/08/17 22:23 10/09/17 01:01 10/09/17 01:01 10/09/17 01:01 - Laboratory Laboratory results interpreted by me: 10/08/17 10/08/17 10/08/17 23:07 23:07 23:07 WBC 12.3 H Eosinophils % 7.6 H Absolute Eosinophils 0.9 H APTT 37.3 H Est GFR ( Amer) 54 L Est GFR (Non-Af Amer) 45 L Direct Bilirubin 0.5 H Alkaline Phosphatase 137 H - Consults [facility] Reason for consultation: 10/08/17 23:56 head bleed (SHLOMO RIVERA) Critical Care Note - Critical Care Note Total time excluding time spent on procedures (mins): 45 - Evaluation and management of headache, hypertension, intracranial hemorrhage, coordination of transfer, consultation with specialist, counseling of patient and family <SHLOMO RIVERA - Last Filed: 10/09/17 05:45> Discharge <HARLEY VEE - Last Filed: 10/09/17 03:05> <SHLOMO RIVERA - Last Filed: 10/09/17 05:45> - Discharge Clinical Impression: Intracranial hemorrhage Condition: Stable Disposition: [facility] Referrals: XIMENA ROBERTS MD [Primary Care Provider] - Follow up as needed Scribe Attestation: 10/09/17 05:44 I personally performed the services described in the documentation, reviewed and edited the documentation which was dictated to the scribe in my presence, and it accurately records my words and actions. (SHLOMO RIVERA) Scribe Documentation - Scribe Written by Amber:: Amber Shelton, 10/09/2017 0100 acting as scribe for :: Kevon <HARLEY VEE - Last Filed: 10/09/17 03:05>
[2017-10-08 23:30] LABS: PROTHROMBIN TIME 12.6 SEC (11.4-15.4)
[2017-10-08 23:31] LABS: PARTIAL THROMBOPLASTIN TIME 37.3 SEC (23.5-35.8)
[2017-10-08 23:36] LABS: ALANINE AMINOTRANSFERASE 35 U/L (9-52); ALBUMIN 4.5 g/dL (3.5-5.0); ALKALINE PHOSPHATASE 137 U/L (38-126); ANION GAP 14 (5-19); ASPARTATE AMINO TRANSFERASE 28 U/L (14-36); BILIRUBIN,DIRECT 0.5 mg/dL (0.0-0.4); BILIRUBIN,TOTAL 0.5 mg/dL (0.2-1.3); BLOOD UREA NITROGEN 15 mg/dL (7-20); CALCIUM 8.4 mg/dL (8.4-10.2); CARBON DIOXIDE 28 mmol/L (22-30); CHLORIDE 99 mmol/L (98-107); CREATININE RESULT 1.21 mg/dL (0.52-1.25); GLUCOSE 108 mg/dL (75-110); POTASSIUM 3.9 mmol/L (3.6-5.0); TOTAL PROTEIN 8.1 g/dL (6.3-8.2)
[2017-10-08 23:39] LABS: ABSOLUTE BASOPHILS # (AUTO) 0.2 10^3/uL (0.0-0.2); ABSOLUTE EOSINOPHILS # (AUTO) 0.9 10^3/uL (0.0-0.6); ABSOLUTE LYMPHOCYTES (AUTO) 4.1 10^3/uL (0.5-4.7); ABSOLUTE MONOCYTES (AUTO) 0.7 10^3/uL (0.1-1.4); ABSOLUTE NEUT (AUTO) 6.3 10^3/uL (1.7-8.2); BASOPHILS % (AUTO) 1.4 % (0-2); EOSINOPHILS % (AUTO) 7.6 % (0-6); HEMATOCRIT 38.6 % (36.0-47.0); HEMOGLOBIN 13.3 g/dL (12.0-15.5); HGB HCT DIFFERENCE 1.3; LYMPHOCYTES % (AUTO) 33.5 % (13-45); MEAN CORPUSCULAR HEMOGLOBIN 30.4 pg (27.0-33.4); MEAN CORPUSCULAR HGB CONC 34.6 g/dL (32.0-36.0); MEAN CORPUSCULAR VOLUME 88 fl (80-97); RED BLOOD COUNT 4.39 10^6/uL (3.72-5.28); RED CELL DISTRIBUTION WIDTH 12.4 % (11.5-14.0); SEGMENTED NEUTROPHILS % (AUTO) 51.5 % (42-78); WHITE BLOOD COUNT 12.3 10^3/uL (4.0-10.5)
--- NOTE | 2017-10-08 23:51 | RADIOLOGY REPORT (SQ) ---
EXAM DESCRIPTION: CT HEAD WITHOUT COMPLETED DATE/TIME: 10/08/2017 11:36 pm REASON FOR STUDY: HTN, headache COMPARISON: None. TECHNIQUE: Axial images acquired through the brain without intravenous contrast. Images reviewed wi th bone, brain and subdural windows. Images stored on PACS. All CT scanners at this facility use dose modulation, iterative reconstruction, and/or weight based d osing when appropriate to reduce radiation dose to as low as reasonably achievable (ALARA). [facility]: Dose Right [facility]: CareDose [facility]: Dose Right [facility]: Teradose 4D [facility]: [employer] Technologies RADIATION DOSE: Up-to-date CT equipment and radiation dose reduction techniques were employed. CTDIv ol: 64.6 mGy. DLP: 1163 mGy-cm. mGy. LIMITATIONS: None. FINDINGS: VENTRICLES: Normal size and contour. CEREBRUM: Punctate hyperdensity at the right frontal -parietal cortex may indicate contusion or small subarachnoid hemorrhage. CEREBELLUM: No masses. No hemorrhage. No alteration of density. No evidence for acute infarction. EXTRAAXIAL SPACES: No fluid collections. No masses. ORBITS AND GLOBE: No intra- or extraconal masses. Normal contour of globe without masses. CALVARIUM: No fracture. PARANASAL SINUSES: No fluid or mucosal thickening. SOFT TISSUES: No mass or hematoma. OTHER: No other significant finding. IMPRESSION: Punctate hyperdensity at the right frontal -parietal cortex may indicate contusion or sm all subarachnoid hemorrhage. This report was called to SHLOMO RIVERA DO at23:42 on 10/08/2017. EVIDENCE OF ACUTE STROKE: NO. COMMENT: Quality ID # [id number]: Final reports with documentation of one or more dose reduction techniques (e.g., Automated exposure control, adjustment of the mA and/or kV according to patient size, use of iterative reconstruction technique) TECHNICAL DOCUMENTATION: JOB ID: [id number] [employer]- All Rights Reserved
[2017-10-09] MEDS ORDERED: DEXAMETHASONE SOD PHOSPHATE INJ 4 MG/1 ML VIAL IV ONE (00:06)
--- NOTE | 2017-10-09 00:26 | RADIOLOGY REPORT (SQ) ---
EXAM DESCRIPTION: CHEST PA/LAT COMPLETED DATE/TIME: 10/08/2017 11:45 pm REASON FOR STUDY: HTN COMPARISON: 09/15/2015. EXAM PARAMETERS: NUMBER OF VIEWS: two views TECHNIQUE: Digital Frontal and Lateral radiographic views of the chest acquired. RADIATION DOSE: NA LIMITATIONS: none FINDINGS: LUNGS AND PLEURA: No opacities, masses or pneumothorax. No pleural effusion. Mild chronic interstitial markings. MEDIASTINUM AND HILAR STRUCTURES: No masses or contour abnormalities. HEART AND VASCULAR STRUCTURES: Heart normal size. No evidence for failure. BONES: No acute findings. HARDWARE: Upper abdominal clips. OTHER: No other significant finding. IMPRESSION: No acute cardiopulmonary findings. TECHNICAL DOCUMENTATION: JOB ID: [id number] [employer] All Rights Reserved
[2017-10-09 01:13] VITALS: BP 158/93
--- NOTE | 2017-10-09 08:17 | EKG REPORT ---
SEVERITY:- BORDERLINE ECG - SINUS RHYTHM LVH BY VOLTAGE BORDERLINE PROLONGED QT INTERVAL : Confirmed by: Peter West MD 09-Oct-2017 08:17:01
== END 2017-10-09 01:18 | disposition short-term general hospital (02) ==
LOC: ER 22:23
DX: I62.9 Nontraumatic intracranial hemorrhage, unspecified (principal); I10 Essential (primary) hypertension; R51 Headache; R11.0 Nausea; R63.0 Anorexia; R25.3 Fasciculation; I25.10 Atherosclerotic heart disease of native coronary artery without angina pectoris; I25.2 Old myocardial infarction; J45.909 Unspecified asthma, uncomplicated; E11.9 Type 2 diabetes mellitus without complications; Z85.828 Personal history of other malignant neoplasm of skin; Z79.899 Other long term (current) drug therapy; Z91.048 Other nonmedicinal substance allergy status; Z85.72 Personal history of non-Hodgkin lymphomas
CPT/HCPCS: 93005; 99291; 96361; 96374; 96375; 36415; 85025; 85610; 85730; 80053; 84484; 71020; 70450; 93010; J1100; J1200; J0780; J2405; J7030

== ENCOUNTER → 2017-11-02 | Outpatient (CLI) | payer MEDICARE, OTHER ==
--- NOTE | 2017-11-03 09:51 | RADIOLOGY REPORT (SQ) ---
EXAM DESCRIPTION: PET CT SKULL/THIGH COMPLETED DATE/TIME: 11/02/2017 7:53 pm REASON FOR STUDY: HX LYMPHOMA, PULMONARY NODULE C88.4 EXTRNOD MRGNL ZN B-CELL LYMPH OF MUCOSA-ASSOC LYMPHOID COMPARISON: 03/13/2014 RADIONUCLIDE AND DOSE: 11.1 mCi F18 FDG The route of agent administration: Intravenous FASTING BLOOD SUGAR: 99 mg/dl CONTRAST TYPE AND DOSE: No CT contrast given. TECHNIQUE: Blood glucose level was verified. Above dose of FDG was injected intravenously. 2-D seg mented attenuation correction images were obtained from the base of the skull to the midthighs. Nonc ontrast CT images were obtained for attenuation correction and fusion with emission images. CT image s were performed without oral or intravenous contrast and are not sensitive for parenchymal lesions. A series of overlapping emission PET images were obtained. Images reviewed and manipulated at [facility] work station by the radiologist. Images stored on PACS. LIMITATIONS: None. FINDINGS: HEAD AND NECK: No areas of abnormal metabolic activity in the soft tissues of the head and neck. CHEST: No areas of abnormal metabolic activity in the chest. ABDOMEN AND PELVIS: No areas of abnormal metabolic activity in the abdomen or pelvis. Expected physi ologic activity is present in the genitourinary system and bowel. PROXIMAL LOWER EXTREMITIES: No areas of abnormal metabolic activity in the soft tissues of the lower extremities. BONES: No abnormal metabolic activity in the visualized skeleton. ADDITIONAL CT FINDINGS: Chronic interstitial lung disease. No suspicious nodules. Calcified mediast inal nodes. OTHER: No other significant findings. IMPRESSION: No evidence of local recurrence or metastatic disease. TECHNICAL DOCUMENTATION: JOB ID: [id number] [employer]- All Rights Reserved
== END ==
LOC: RAD 16:20
PROVIDERS: ATTEND Internal Medicine
DX: C88.4 Extranodal marginal zone B-cell lymphoma of mucosa-associated lymphoid tissue [MALT-lymphoma] (principal); R91.1 Solitary pulmonary nodule; J98.4 Other disorders of lung
CPT/HCPCS: 78815; A9552

== ENCOUNTER → 2018-01-21 | Outpatient (CLI) | payer MEDICARE, OTHER ==
[2018-01-21 11:11] LABS: ABSOLUTE BASOPHILS # (AUTO) 0.1 10^3/uL (0.0-0.2); ABSOLUTE EOSINOPHILS # (AUTO) 0.7 10^3/uL (0.0-0.6); ABSOLUTE MONOCYTES (AUTO) 0.6 10^3/uL (0.1-1.4); ABSOLUTE NEUT (AUTO) 4.5 10^3/uL (1.7-8.2); BASOPHILS % (AUTO) 1.1 % (0-2); EOSINOPHILS % (AUTO) 7.6 % (0-6); HEMATOCRIT 37.8 % (36.0-47.0); HEMOGLOBIN 12.9 g/dL (12.0-15.5); INTERNATIONAL RATION (INR) 0.86; LYMPHOCYTES % (AUTO) 33.7 % (13-45); MEAN CORPUSCULAR HEMOGLOBIN 30.2 pg (27.0-33.4); MEAN CORPUSCULAR HGB CONC 34.1 g/dL (32.0-36.0); MEAN CORPUSCULAR VOLUME 89 fl (80-97); MONOCYTES % (AUTO) 6.4 % (3-13); PLATELET COUNT 339 10^3/uL (150-450); PROTHROMBIN TIME 12.3 SEC (11.4-15.4); RED BLOOD COUNT 4.26 10^6/uL (3.72-5.28); RED CELL DISTRIBUTION WIDTH 12.8 % (11.5-14.0); SEGMENTED NEUTROPHILS % (AUTO) 51.2 % (42-78); TOTAL CELLS COUNTED % (AUTO) 100 %; WHITE BLOOD COUNT 8.9 10^3/uL (4.0-10.5)
[2018-01-21 11:31] LABS: ANION GAP 15 (5-19); BLOOD UREA NITROGEN 16 mg/dL (7-20); CALCIUM 8.7 mg/dL (8.4-10.2); CARBON DIOXIDE 27 mmol/L (22-30); CHLORIDE 98 mmol/L (98-107); GLUCOSE 141 mg/dL (75-110); POTASSIUM 4.8 mmol/L (3.6-5.0); SODIUM 139.9 mmol/L (137-145)
== END ==
LOC: OD 09:39
PROVIDERS: ATTEND Internal Medicine Critical Care Medicine
DX: J84.9 Interstitial pulmonary disease, unspecified (principal); R91.8 Other nonspecific abnormal finding of lung field; Z86.79 Personal history of other diseases of the circulatory system; R06.00 Dyspnea, unspecified; R53.82 Chronic fatigue, unspecified; R09.89 Other specified symptoms and signs involving the circulatory and respiratory systems; G47.10 Hypersomnia, unspecified; Z98.890 Other specified postprocedural states; G47.30 Sleep apnea, unspecified; F51.04 Psychophysiologic insomnia; Z87.2 Personal history of diseases of the skin and subcutaneous tissue
CPT/HCPCS: 36415; 80048; 85025; 85610

== ENCOUNTER 2018-01-22 05:51 | Day surgery (SDC) | payer MEDICARE, OTHER ==
[~2018-01-22 05:51] MED LIST: DEXTROSE 5%-1/2 NORMAL SALINE 1,000 ML IV PRN
[2018-01-22 07:01] LABS: CREATINE KINASE MB 0.32 ng/mL (<4.55)
[2018-01-22 07:02] LABS: TROPONIN I < 0.012 ng/mL
[2018-01-22] MEDS ORDERED: EPINEPHRINE INJ/PF 1 MG/1 ML AMPULE ONE (07:18)
[2018-01-22] MEDS ORDERED: LIDOCAINE 2% INJ (20 MG/ML) 20 ML MDV ONE (07:18)
[2018-01-22] MEDS ORDERED: NALOXONE HCL INJ/PF 0.4 MG/1 ML SDV ONE (07:18)
[2018-01-22] MEDS ORDERED: FLUMAZENIL INJ 0.5 MG/5 ML VIAL ONE (07:19)
[2018-01-22] MEDS ORDERED: EPINEPHRINE INJ 1 MG/10 ML DISP.SYRIN ONE (07:19)
--- NOTE | 2018-01-22 08:13 | EKG REPORT ---
SEVERITY:- OTHERWISE NORMAL ECG - SINUS RHYTHM BORDERLINE LEFT AXIS DEVIATION : Confirmed by: Peter West MD 22-Jan-2018 08:12:39
[2018-01-22] MEDS: MIDAZOLAM 2 MG/2 ML INJ ONE ×7 (08:29→09:03)
[2018-01-22] MEDS: FENTANYL CITRATE INJ/PF 100 MCG/2 ML AMPUL ONE ×2 (08:36→08:43)
[2018-01-22 10:51] VITALS: BP 118/76
--- NOTE | 2018-01-22 14:53 | OPERATIVE REPORT E ---
Operative Report NAME: MAREK GILES : 1950 AGE: 67Y DATE OF SURGERY: 01/22/2018 ROOM: INDICATIONS: Patient is a 67-year-old female who came in with chronic cough, increasing shortness of breath and pulmonary infiltrates bilaterally, appeared to be worsening. Patient underwent flexible bronchoscopy today with bronchial washing, bronchoalveolar lavage. Patient provided consent for the procedure and verbalized understanding of the indications, risks and potential complications of the procedure. SURGEON: PETERSON CORTEZ M.D. PROCEDURE: Patient was connected to the hotel maid, pulse oximetry, respiratory monitor, and blood pressure monitor. Patient was given 2% lidocaine solution, 5 mL through the nebulizer, and 2% lidocaine solution 3 mL via atomizer applied to the posterior pharynx. Patient was given Versed in increments of 0.5 mg to a total dose of 3.5 mg, and fentanyl in increments of 25 mcg for a total dose of 50 mcg. 1% lidocaine solution was applied through the bronchoscope in aliquots of 1 or 2 mL as the flexible bronchoscope was advanced. The patient was given 2% lidocaine gel 10 ml applied to the oropharyngeal area. The flexible bronchoscope inserted through the mouthguard. Vocal cords were visualized, and supraglottic structures and glottic structures appeared normal. There were no lesions noted. Trachea appeared normal. Yulisa was sharp and midline. Left main stem bronchi, left segmental bronchi, and right main stem bronchi, and the right segmental bronchi, right upper lobe segmental bronchi, right middle lobe segmental bronchi, and right lower lobe segmental bronchi appeared normal. There were no endobronchial lesions noted. Bronchial washing was performed on both sides. A bronchoalveolar lavage was performed first on the apical segment of the right upper lobe and anterior segment of the right upper lobe. Bronchoalveolar lavage will be sent for cytology and microbiology for AFB, bacteria, and fungus. The bronchial washing will be sent for cytology as well, the AFB, bacteria, and fungal cultures. The patient tolerated the procedure well. There was no bleeding noted. Patient is discharged home and is instructed to follow up at the Pulmonary Clinic in one week's time. DICTATING PHYSICIAN: PETERSON CORTEZ MD,ROBIN,MPH [id number] PHY#: [id number] ID: [id number] JOB#: [id number] ACCT: [id number] cc:PETERSON CORTEZ M.D. > TAVON
== END 2018-01-22 10:20 | disposition home or self-care (01) ==
LOC: OROUT 05:51
PROVIDERS: ATTEND Internal Medicine Critical Care Medicine
PROC: 0B9C8ZX Drainage of Right Upper Lung Lobe, Via Natural or Artificial Opening Endoscopic, Diagnostic (ICD-10-PCS; principal; 2018-01-22 08:00)
DX: R91.8 Other nonspecific abnormal finding of lung field (principal); R05 Cough; R06.02 Shortness of breath; J45.909 Unspecified asthma, uncomplicated; R09.02 Hypoxemia; Z79.899 Other long term (current) drug therapy; Z87.891 Personal history of nicotine dependence
CPT/HCPCS: 31624; 36415; 87070; 87205; 87206; 87116; 87101; 82553; 82550; 82947; 87077; 84484; 87186; 87015; 88162; 93005; 93010; J2250; J3490; J3010; J0171; J2310

== ENCOUNTER → 2018-06-12 | Outpatient (CLI) | payer MEDICARE, OTHER ==
[2018-06-12 13:36] LABS: ALANINE AMINOTRANSFERASE 32 U/L (9-52); ALBUMIN 4.2 g/dL (3.5-5.0); ALKALINE PHOSPHATASE 113 U/L (38-126); ASPARTATE AMINO TRANSFERASE 26 U/L (14-36); BILIRUBIN,DIRECT 0.4 mg/dL (0.0-0.4); BILIRUBIN,TOTAL 0.4 mg/dL (0.2-1.3); BLOOD UREA NITROGEN 24 mg/dL (7-20); TOTAL PROTEIN 7.5 g/dL (6.3-8.2)
== END ==
LOC: OD 11:59
PROVIDERS: ATTEND Internal Medicine Gastroenterology
DX: R10.9 Unspecified abdominal pain (principal)
CPT/HCPCS: 36415; 80076; 82565; 84520

== ENCOUNTER 2020-01-15 22:23 | Emergency (ER) | payer MEDICARE, OTHER ==
--- NOTE | 2020-01-15 22:42 | ER Document Report ---
ED Medical Screen (RME) - General Stated Complaint: FALL,LEFT FOOT PAIN Primary Care Provider: JOSEPH EMERY MD [Primary Care Provider] - Follow up as needed Notes: Patient is a 69-year-old white female with a past medical history of chronic pain on chronic opioid therapy who presents to the ER today with a chief complaint of ankle and foot pain after a fall that occurred prior to arrival. The patient states she had been seated too long with dogs lying on her lap. She states she went up to get to go to the bathroom and her foot was still asleep and she rolled the ankle. She admits to pain in the lateral left foot and lateral malleolus. Denies any ongoing abnormal sensations. Denies any weakness. I have treated and performed a rapid initial assessment of this patient. A comprehensive ED assessment and evaluation of the patient, analysis of test res ults and completion of medical decision making process will be conducted by additional ED providers. PHYSICAL EXAMINATION: GENERAL: Well-appearing, well-nourished and in no acute distress. A&Ox4. Answers questions appropriately. TRAVEL OUTSIDE OF THE [place] IN LAST 30 DAYS: No - Related Data Allergies/Adverse Reactions: butorphanol tartrate [From Stadol] Adverse Reaction (Severe, Verified 03/19/17 07:53) n and v adhesives Allergy (Severe, Uncoded 03/19/17 07:53) Blisters seasonal Allergy (Severe, Uncoded 03/19/17 07:53) itching Past Medical History - Past Medical History Cardiac Medical History: Reports: Hx Atrial Fibrillation - paroxysmal, Hx Coronary Artery Disease, Hx Heart Attack - Greater than 25 years ago., Hx Hypercholesterolemia - Diagnosis 2 weeks ago; to discuss medical treatment with PCP., Hx Hypertension Denies: Hx DVT, Hx Pulmonary Embolism Pulmonary Medical History: Reports: Hx Asthma, Hx Bronchitis - hx of, Hx Pneumonia - hx of Denies: Hx COPD Neurological Medical History: Denies: Hx Cerebrovascular Accident, Hx Seizures Endocrine Medical History: Reports: Hx Diabetes Mellitus Type 2, Hx Hypothyroidism - Postsurgical for carcinoma. Denies: Hx Diabetes Mellitus Type 1, Hx Hyperthyroidism Renal/ Medical History: Denies: Hx Peritoneal Dialysis Malignancy Medical History: Reports: Hx Lymphoma - Gastric, Hx Skin Cancer - Squamous and basal cell carcinomas. GI Medical History: Denies: Hx Cirrhosis, Hx Gastroesophageal Reflux Disease, Hx Hepatitis Musculoskeltal Medical History: Reports Hx Arthritis - Psoriatic and degenerative Skin Medical History: Reports Hx Psoriasis Psychiatric Medical History: Denies: Hx Depression Infectious Medical History: Denies: Hx Hepatitis Past Surgical History: Reports: Hx Genitourinary Surgery - Bladder sling, Hx Gynecologic Surgery - cystoseal, Hx Hysterectomy, Hx Thyroid Surgery - rectoseal, Other - Bladder sling; wedge resection, right lung, with no evidence of lymphoma. Denies: Hx Pacemaker - Immunizations Hx Diphtheria, Pertussis, Tetanus Vaccination: Yes Doctor's Discharge - Discharge Referrals: JOSEPH EMERY MD [Primary Care Provider] - Follow up as needed
[2020-01-15 22:45] VITALS: BP 133/86
--- NOTE | 2020-01-15 23:25 | RADIOLOGY REPORT (SQ) ---
3 VIEWS OF LEFT ANKLE 2 VIEWS OF LEFT FOOT EXAM DATE: 01/15/2020 10:40 PM COUNSELING SERVICES DIRECTOR HISTORY: Foot pain post fall COMPARISON: None. FINDINGS: The ankle mortise is preserved on these nonstress views. There is hallux valgus with superimposed degenerative changes. There is a nondisplaced fracture of the fifth metatarsal base with overlying soft tissue swelling. No foreign body. Accessory navicular is seen. Generalized osteopenia is present. IMPRESSION: Nondisplaced fracture of the fifth metatarsal base.
--- NOTE | 2020-01-15 23:25 | RADIOLOGY REPORT (SQ) ---
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 FINDINGS: The ankle mortise is preserved on these nonstress views. There is hallux valgus with superimposed degenerative changes. There is a nondisplaced fracture of the fifth metatarsal base with overlying soft tissue swelling. No foreign body. Accessory navicular is seen. Generalized osteopenia is present. IMPRESSION: Nondisplaced fracture of the fifth metatarsal base.
[2020-01-15] MEDS ORDERED: MORPHINE SULFATE 10 MG/ML INJ IM ONE (23:53)
--- NOTE | 2020-01-16 00:18 | ER Document Report ---
ED Extremity Problem, Lower - General Chief Complaint: Foot Injury Stated Complaint: FALL,LEFT FOOT PAIN Time Seen by Provider: 01/15/20 23:40 Primary Care Provider: JOSEPH EMERY MD [Primary Care Provider] - Follow up as needed SHARRI BALDERAS MD [NO LOCAL MD] - Follow up as needed Notes: CHIEF COMPLAINT: Left lateral foot injury tonight HPI: 69-year-old female presenting to the emergency department complaining of left lateral foot injury tonight. Patient was sitting for a period of time when to get up and her foot was asleep and she rolled over the foot and ankle. Complains of pain to the lateral foot with swelling and bruising. Patient is on chronic pain medication for back issues at home normally, takes morphine and Percocet. Still complaining of pain to the foot. Denies numbness or tingling in the toes. Denies other injuries or complaints. ROS: See HPI - all other systems were reviewed and are otherwise negative Constitutional: no fever or recent illness Integumentary: no rash Allergy: no hives Musculoskeletal: Positive extremity pain or swelling Neurological: no numbness/tingling, no weakness MEDICATIONS: I agree with the patient medications as charted by the RN. ALLERGIES: I agree with the allergies as charted by the RN. PAST MEDICAL HISTORY/PAST SURGICAL HISTORY: Reviewed and agree as charted by RN. SOCIAL HISTORY: Reviewed and agree as charted by RN. FAMILY HISTORY: No significant familial comorbid conditions directly related to patient complaint EXAM: Reviewed vital signs as charted by RN. CONSTITUTIONAL: Airway patent; alert and oriented and responds appropriately to questions. Well-appearing, well-nourished, mild distress secondary to pain HEAD: Normocephalic, atraumatic EYES: Conjunctivae clear, sclerae non-icteric ENT: normal nose; no bleeding; normal pharynx, normal voice, no stridor NECK: Trachea is midline good range of motion; no contusions or hematomas CARD: Normal symmetric pulses RESP: Normal chest excursion with respiration ABD/GI: non-distended PELVIS: Stable, nontender BACK: The back appears atraumatic EXT: Normal ROM in all joints; there is soft tissue swelling with bruising over the lateral proximal fifth metatarsal of the left foot. Dorsalis pedis and posterior tibial pulses are present the left foot and ankle. There is no tenderness over the medial or lateral malleolus of the left ankle. No proximal fibular pain to the left lower extremity on palpation. Sensation is intact in the toes with capillary refill less than 3 seconds SKIN: Normal color for age and race; warm; dry; good turgor; no apparent lesions NEURO: Moves all extremities equally; Motor and sensory function intact PSYCH: The patient's mood and manner are appropriate. MDM: 69-year-old female with a nondisplaced fifth metatarsal fracture approxima tely in the left foot. We do not have a walking boot here so I will place her in a posterior splint at this time to protect the fracture site, follow-up orthopedics. She has pain management at home TRAVEL OUTSIDE OF THE [place] IN LAST 30 DAYS: No - Related Data Allergies/Adverse Reactions: butorphanol tartrate [From Stadol] Adverse Reaction (Severe, Verified 03/19/17 07:53) n and v adhesives Allergy (Severe, Uncoded 03/19/17 07:53) Blisters seasonal Allergy (Severe, Uncoded 03/19/17 07:53) itching Home Medications: morphine, percocet,gabapentin, linziss, levothyroxine, primadone, stelera,advair, spiriva, cymbalta, celebrex, horizant, low dose asa, lipitor, Past Medical History - Social History Smoking Status: Current Some Day Smoker Family History: Reviewed & Not Pertinent, Malignancy, Other - Mother of ruptured abdominal aortic aneurysm; also had leukemia Patient has suicidal ideation: No Patient has homicidal ideation: No - Past Medical History Cardiac Medical History: Reports: Hx Atrial Fibrillation - paroxysmal, Hx Coronary Artery Disease, Hx Heart Attack - Greater than 25 years ago., Hx Hypercholesterolemia - Diagnosis 2 weeks ago; to discuss medical treatment with PCP., Hx Hypertension Denies: Hx DVT, Hx Pulmonary Embolism Pulmonary Medical History: Reports: Hx Asthma, Hx Bronchitis - hx of, Hx Pneumonia - hx of Denies: Hx COPD Neurological Medical History: Denies: Hx Cerebrovascular Accident, Hx Seizures Endocrine Medical History: Reports: Hx Diabetes Mellitus Type 2, Hx Hypothyroidism - Postsurgical for carcinoma. Denies: Hx Diabetes Mellitus Type 1, Hx Hyperthyroidism Renal/ Medical History: Denies: Hx Peritoneal Dialysis Malignancy Medical History: Reports: Hx Lymphoma - Gastric, Hx Skin Cancer - Squamous and basal cell carcinomas. GI Medical History: Denies: Hx Cirrhosis, Hx Gastroesophageal Reflux Disease, Hx Hepatitis Musculoskeletal Medical History: Reports Hx Arthritis - Psoriatic and dege nerative Skin Medical History: Reports Hx Psoriasis Psychiatric Medical History: Denies: Hx Depression Infectious Medical History: Denies: Hx Hepatitis Past Surgical History: Reports: Hx Genitourinary Surgery - Bladder sling, Hx Gynecologic Surgery - cystoseal, Hx Hysterectomy, Hx Thyroid Surgery - rectoseal, Other - Bladder sling; wedge resection, right lung, with no evidence of lymphoma. Denies: Hx Pacemaker - Immunizations Hx Diphtheria, Pertussis, Tetanus Vaccination: Yes Physical Exam - Vital signs Vitals: Temp Pulse Resp BP Pulse Ox 98.1 F 99 18 133/86 H 93 01/15/20 22:43 01/15/20 22:43 01/15/20 22:43 01/15/20 22:43 01/15/20 22:43 Course - Vital Signs Vital signs: Temp Pulse Resp BP Pulse Ox 98.1 F 99 18 133/86 H 93 01/15/20 22:43 01/15/20 22:43 01/15/20 22:43 01/15/20 22:43 01/15/20 22:43 Procedures - Immobilization Left Foot Time completed: 00:19 Pre-Proc Neuro Vasc Exam: Normal Immobilizer type: Short Leg Posterior Performed by: PCT Post-Proc Neuro Vasc Exam: Normal, Unchanged from pre-exam Alignment checked and good: Yes Discharge - Discharge Clinical Impression: Fracture of fifth metatarsal bone of left foot Qualifiers: Encounter type: initial encounter Fracture type: closed Fracture alignment: nondisplaced Qualified Code(s): S92.355A - Nondisplaced fracture of fifth metatarsal bone, left foot, initial encounter for closed fracture Condition: Stable Disposition: HOME, SELF-CARE Instructions: Foot Fracture ([facility]) Additional Instructions: 1. ice and elevate the lower extremity as much as possible 2. non weight bearing until evaluated by orthopedics 3. Continue previous medications for pain 4. follow up with orthopedics for further evaluation and treatment, call for appt. Referrals: JOSEPH EMERY MD [Primary Care Provider] - Follow up as needed SHARRI BALDERAS MD [NO LOCAL MD] - Follow up as needed
== END 2020-01-16 00:47 | disposition home or self-care (01) ==
LOC: ER 22:23
DX: S92.355A Nondisplaced fracture of fifth metatarsal bone, left foot, initial encounter for closed fracture (principal); W19.XXXA Unspecified fall, initial encounter; F17.200 Nicotine dependence, unspecified, uncomplicated; I25.10 Atherosclerotic heart disease of native coronary artery without angina pectoris; I10 Essential (primary) hypertension; E78.00 Pure hypercholesterolemia, unspecified; J45.909 Unspecified asthma, uncomplicated; E89.0 Postprocedural hypothyroidism; M19.90 Unspecified osteoarthritis, unspecified site; L40.50 Arthropathic psoriasis, unspecified; Z79.891 Long term (current) use of opiate analgesic; Z79.899 Other long term (current) drug therapy; Z79.82 Long term (current) use of aspirin; Z79.51 Long term (current) use of inhaled steroids; Z79.1 Long term (current) use of non-steroidal anti-inflammatories (NSAID); Z91.048 Other nonmedicinal substance allergy status
CPT/HCPCS: 99283; 73610; 73620; 29515; J2270

== ENCOUNTER → 2020-08-14 | Outpatient (CLI) | payer MEDICARE, OTHER ==
--- NOTE | 2020-08-14 14:34 | ER RDC ASSESSMENT REPORT ---
Intake - In the Last 14 days Have you traveled outside [place]?: No Have you been in close contact with someone CONFIRMED: No Worked in Healthcare?: No - Symptoms Subjective Fever([place] feverish): Yes Chills: Yes Muscule Aches: No Runny Nose: No Sore Throat: No Cough (New or worsening chronic cough): Yes Shortness of breath: No Nausea or Vomiting: Yes Headache: Yes Abdominal Pain: No Diarrhea(3 or more loose stools in last 24 hours): No - Do you have any of the following Chronic lung disease: Asthma or emphysema or COPD: No Cystic Fibrosis: No Diabetes: No High Blood Pressure: No Cardiovascular Disease: Yes Chronic Kidney Disease: No Chronic Liver Disease: No Chronic blood disorder like Sickle Cell Disease: No Weak 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 Patient reports fever chills, cough nausea and headache for the past 4 days. Patient has an underlying history of aortic aneurysm psoriasis and chronic back pain. - Related Data Allergies/Adverse Reactions: butorphanol tartrate [From Stadol] Adverse Reaction (Severe, Verified 03/19/17 07:53) n and v adhesives Allergy (Severe, Uncoded 03/19/17 07:53) Blisters seasonal Allergy (Severe, Uncoded 03/19/17 07:53) itching Past Medical History - General Information source: Patient - Social History Smoking Status: Former Smoker Lives with: Family Family History: Reviewed & Not Pertinent, Malignancy, Other - Mother of ruptured abdominal aortic aneurysm; also had leukemia - Past Medical History Cardiac Medical History: Reports: Hx Atrial Fibrillation - paroxysmal, Hx Coronary Artery Disease, Hx Heart Attack - Greater than 25 years ago., Hx Hypercholesterolemia - Diagnosis 2 weeks ago; to discuss medical treatment with PCP., Hx Hypertension Pulmonary Medical History: Reports: Hx Asthma, Hx Bronchitis - hx of, Hx Pneumonia - hx of Denies: Hx COPD Endocrine Medical History: Reports: Hx Diabetes Mellitus Type 2, Hx Hypothyroidism - Postsurgical for carcinoma. Denies: Hx Diabetes Mellitus Type 1, Hx Hyperthyroidism Renal/ Medical History: Denies: Hx Peritoneal Dialysis Malignancy Medical History: Reports: Hx Lymphoma - Gastric, Hx Skin Cancer - Squamous and basal cell carcinomas. Musculoskeletal Medical History: Reports Hx Arthritis - Psoriatic and de generative Skin Medical History: Reports Hx Psoriasis Psychiatric Medical History: Denies: Hx Depression Infectious Medical History: Denies: Hx Hepatitis Past Surgical History: Reports: Hx Genitourinary Surgery - Bladder sling, Hx Gynecologic Surgery - cystoseal, Hx Hysterectomy, Hx Thyroid Surgery - rectoseal, Other - Bladder sling; wedge resection, right lung, with no evidence of lymphoma Physical Exam - Notes Notes: The patient was evaluated during the global Covid 19 pandemic, and that diagnosis was suspected/considered upon their initial presentation. Their evaluation, treatment and testing was consistent with current guidelines for patients who present with complaints or symptoms that may be related to Covid 19. Full physical exam could not be performed due to covid 19 isolation protocols. Constitutional: Nontoxic appearance, no acute distress Eyes: Nonicteric, extraocular movements intact, sclera clear Cardiovascular: Heart rate and rhythm regular, no JVD Respiratory: Scattered wheezing with cough, nonlabored breathing, no use of accessory muscles, no tachypnea Gastrointestinal: Abdomen not distended Muculoskeletal: Moves all extremities well Skin: Normal color Neuro: Awake alert oriented, normal speech Psych: Normal mood and affect Diagnostic Results Laboratory Results: Patient presents with upper respiratory symptoms worrisome for possible Covid 19. Patient does not have emergency worrying symptoms such as difficulty breathing, shortness of breath, chest pain, pressure, confusion or cyanosis. Patient appears suitable for vital signs are stable and patient is nontoxic in appearance. Good return precautions have been discussed with patient, patient verbalized understanding and is agreeable with discharge plan of care at this time. Patient Education/Counseling Counseling/Education: Patient was provided with discharge information including: As a person under investigation for Covid 19, the [facility], division of public health advises you to adhere to the following guidance until your test results are reported to you. If your test result is positive, you will receive additional information from your provider and your local health department at that time. Remain at home until you are cleared by the health provider or public health authorities. Keep a log of visitors to your home, notify any visitors to your home of your isolation status. If you plan to move to a new address or leave the county, notify the local health department in your County. Call your doctor or seek care if you have an urgent medical need. Before seeking medical care, call ahead to get instructions from the provider before arriving at the medical office clinic or hospital. Notify them that you are being tested for the virus that causes Covid 19 so that arrangements can be made, as necessary, to prevent transmission to others in the healthcare setting. Next, notify the local health department in your county. If a medical emergency arises and you need to call 911, inform the first responders that you are being tested for the virus that causes Covid 19. Next, notify the local health department in your county. RDC Discharge - Discharge Clinical Impression: Encounter for screening laboratory testing for COVID-19 virus, Wheezing Condition: Stable Disposition: Home; Selfcare
[2020-08-14 14:43] VITALS: BP 98/61
[2020-08-14 15:50] LABS: A TYPE INFLUENZA AG NEGATIVE (NEGATIVE); B INFLUENZA AG NEGATIVE (NEGATIVE)
== END ==
LOC: RDC 14:00
PROVIDERS: ATTEND Nurse Practitioner Family
DX: Z20.828 Contact with and (suspected) exposure to other viral communicable diseases (principal)
CPT/HCPCS: 87070; 87880; 87804; U0003; C9803; 87635; 99201; 99211

== ENCOUNTER → 2020-12-25 | Outpatient (CLI) | payer MEDICARE, OTHER ==
--- NOTE | 2020-12-25 09:11 | WOMENS IMAGING REPORT ---
EXAM DESCRIPTION: U/S ABDOMEN LIMITED IMAGES COMPLETED DATE/TIME: 12/25/2020 8:46 am REASON FOR STUDY: R10.9 R10.9 UNSPECIFIED ABDOMINAL PAIN K76.0 FATTY (CHANGE OF) LIVER, NOT ELSEWH ERE CLASSIFIED COMPARISON: None. TECHNIQUE: Dynamic and static grayscale images acquired of the abdomen and recorded on PACS. Additio nal selected color Doppler and spectral images recorded. LIMITATIONS: None. FINDINGS: PANCREAS: The pancreas is obscured by overlying bowel. LIVER: The contour echotexture of the liver are normal. There is a 1.4 x 1.4 x 1.3 cm anechoic cyst in the hepatic dome. LIVER VASCULATURE: Normal hepatopetal directional flow in the main portal vein. The hepatic veins ar e patent. GALLBLADDER: The gallbladder is surgically absent. ULTRASOUND-DETECTED VEE'S SIGN: The patient experienced pain from the pressure of the ultrasound probe. INTRAHEPATIC DUCTS AND COMMON DUCT: The common bile duct measures 8.8 mm at the kathleen hepatis. There is a cystic area in the kathleen hepatis that measures 3.5 x 1.9 cm. INFERIOR VENA CAVA: The IVC is obscured by overlying bowel. AORTA: The abdominal aorta is obscured by overlying bowel. RIGHT KIDNEY: The right kidney measures 10.3 cm in length. There is no hydronephrosis. PERITONEAL AND RIGHT PLEURAL SPACE: No ascites or effusions. OTHER: No other findings. IMPRESSION: 1. Status post cholecystectomy with pain in the right upper quadrant from the pressure o f the ultrasound probe. There is a cystic lesion in the kathleen hepatis that measures 3.4 x 1.9 cm josé miguel t likely represents the dilated common bile duct. There is no dilatation of the intrahepatic ducts o r fluid collection in the gallbladder fossa. Consider correlation with alkaline phosphatase/ bilirub in to determine the need for further evaluation with an ERCP/ MRCP. 2. The pancreas, IVC and abdominal aorta were obscured by overlying bowel. 3. 1.4 x 1.4 x 1.3 cm hepatic cyst. TECHNICAL DOCUMENTATION: JOB ID: [id number] [employer]- All Rights Reserved Reading location - IP/workstation name: [email or web address]
== END ==
LOC: WI 08:23
PROVIDERS: ATTEND Physician Assistant
DX: R10.9 Unspecified abdominal pain (principal); K76.0 Fatty (change of) liver, not elsewhere classified; R11.2 Nausea with vomiting, unspecified; K76.9 Liver disease, unspecified
CPT/HCPCS: 76705